=== PATIENT | male | born 1995 | race Caucasian/White ===

== ENCOUNTER 2018-06-02 09:23 | Outpatient (CLI) | payer BC ==
--- NOTE | 2018-06-02 09:51 | RAD ---
2 VIEWS CHEST: Date: 06/02/18 PROVIDED CLINICAL HISTORY: Pneumonia. FINDINGS: No comparisons. Cardiac and mediastinal silhouette is within normal limits. No focal consolidation, pleural fluid, or pneumothorax apparent. IMPRESSION: No evidence for acute cardiopulmonary process. POS: [facility]
== END 2018-06-02 09:24 | disposition home or self-care (01) ==
LOC: RAD-FRANK 09:23
PROVIDERS: ATTEND Nurse Practitioner Family
DX: J18.9 Pneumonia, unspecified organism (principal)
CPT/HCPCS: 71046

== ENCOUNTER 2018-07-26 11:20 | Outpatient (CLI) | payer BC ==
--- NOTE | 2018-07-26 11:53 | ULT ---
BILATERAL AXILLARY ULTRASOUND: HISTORY: Bilateral axillary swelling. Evaluate for enlarged lymph nodes. TECHNIQUE: Multiplanar, saleh scale, and color Doppler images were obtained in a bilateral axillary ultrasound. FINDINGS: In the left axilla, there is a poorly circumscribed fluid collection just beneath the skin surface. There may be a small lymph node measuring 1l7 cm in greatest dimension. In the right axilla, there is a well-circumscribed cystic structure measuring 5 mm in greatest dimens ion. This is associated the undersurface of the dermis and may represent a sebaceous cyst. This dem onstrates increased through transmission. No enlarged lymph nodes are seen in the right axilla. IMPRESSION: 1. Possible sebaceous cyst in the right axilla. 2. Nonspecific fluid collection in the left axilla. POS: [facility]
== END 2018-07-26 11:21 | disposition home or self-care (01) ==
LOC: BICULT 11:20
PROVIDERS: ATTEND Nurse Practitioner Family
DX: R59.0 Localized enlarged lymph nodes (principal)
CPT/HCPCS: 76999